=== PATIENT | female | born 1975 | race Caucasian/White ===

== ENCOUNTER → 2016-09-07 | Outpatient (CLI) | payer MEDICAID ==
[2016-09-07 11:24] LABS: Basophils % (A) 0 %; CH 29.8; CHCM 33.4; Eosinophils % (A) 1 %; HCT 41.5 % (34.0-46.0); HGB 13.6 gm/dL (11.4-16.0); Luc # (Auto) 0.07; Luc % (Auto) 1; Lymphocytes % (A) 38 %; MCH 29.3 pg (25.0-35.0); MCHC 32.7 g/dL (31.0-37.0); MCV 89.5 fL (80.0-100.0); Mean Platelet Volume 7.2; Monocytes # (A) 0.2 k/uL (0-1.0); Monocytes % (A) 4 %; Neutrophils % (A) 56 %; RBC 4.64 m/uL (3.80-5.40); RDW 12.9 % (11.5-15.5); WBC 5.3 k/uL (3.8-10.6); WBC (Perox) 5.61
[2016-09-07 11:38] LABS: ALT 39 U/L (9-52); AST 24 U/L (14-36); Alkaline Phosphatase 45 U/L (38-126); Anion Gap 13 mmol/L; Blood Urea Nitrogen 8 mg/dL (7-17); Calcium 9.4 mg/dL (8.4-10.2); Carbon Dioxide 27 mmol/L (22-30); Chloride 104 mmol/L (98-107); Glucose 98 mg/dL (74-99); Non-African American GFR(MDRD) >60 (>60 ml/min/1.73 sqM); Potassium 4.8 mmol/L (3.5-5.1); Sodium 144 mmol/L (137-145); Total Bilirubin 0.5 mg/dL (0.2-1.3); Total Protein 7.3 g/dL (6.3-8.2)
[2016-09-07 12:27] LABS: Vitamin B12 336 pg/mL (239-931)
== END | disposition home or self-care (01) ==
LOC: LABWHC1 10:55
PROVIDERS: ATTEND Family Medicine
DX: E04.1 Nontoxic single thyroid nodule (principal); F41.1 Generalized anxiety disorder; E27.8 Other specified disorders of adrenal gland; R53.83 Other fatigue; R20.2 Paresthesia of skin
CPT/HCPCS: 36415; 80053; 82533; 82607; 84439; 84443; 85025; 86376

== ENCOUNTER → 2016-12-11 | Outpatient (CLI) | payer MEDICAID ==
[2016-12-11 08:58] LABS: CH 30.2; CHCM 33.6; HCT 42.5 % (34.0-46.0); HDW 2.58; HGB 14.4 gm/dL (11.4-16.0); MCH 30.5 pg (25.0-35.0); MCHC 33.8 g/dL (31.0-37.0); MCV 90.2 fL (80.0-100.0); Mean Platelet Volume 7.3; RBC 4.71 m/uL (3.80-5.40); RDW 13.1 % (11.5-15.5); WBC 6.3 k/uL (3.8-10.6)
--- NOTE | 2016-12-11 09:22 | US ---
Thyroid sonography. HISTORY: Nodule. COMPARISON: 2015 ultrasound Thyroid sonography was performed. GLAND SIZE: Right Lobe: 5.0 x 1.3 x 2.4 cm Overall Parenchyma: homogeneous Left Lobe: 4.4 x 1.2 x 1.8 cm Overall Parenchyma: homogeneous Isthmus Thickness: 0.3 cm NODULES RIGHT: # of nodules measured on right: 2 1. 0.6 x 0.3 x 0.6cm hypoechoic nodule at the mid lateral pole with well-defined margin. This nodule is wider than tall and shows no intranodular vascularity. prior size: 0.6 x 0.6 x 0.3 cm 2. 0.8 x 0.5 x 0.7cm hypoechoic solid nodule at the mid posterior pole with well-defined margins. Th is nodule is wider than tall and shows intranodular vascularity. prior size: 0.8 x 0.6 x 0.6 cm 3. Tiny 3mm mixed nodule at the anterior mid pole. No vascularity, wider than tall, not seen previo usly. LEFT: # of nodules measured on left: 1 1. 1.0 x 0.4 x 0.8cm hypoechoic nodule at the mid anterior pole with well-defined. This nodule is wi juan than tall and shows no intranodular vascularity. prior size: 1.0 x 0.9 x 0.4 cm ISTHMUS: # of nodules measured within isthmus: 0 Bilateral neck scanned with no abnormal lymphadenopathy noted; bilateral nodules seen. IMPRESSION: Essentially stable nonspecific thyroid nodularity. Small 3 mm new right-sided nodule as noted above.
[2016-12-11 12:40] LABS: ALT 35 U/L (9-52); AST 21 U/L (14-36); Alkaline Phosphatase 44 U/L (38-126); Anion Gap 10 mmol/L; Blood Urea Nitrogen 14 mg/dL (7-17); Calcium 9.8 mg/dL (8.4-10.2); Carbon Dioxide 27 mmol/L (22-30); Chloride 103 mmol/L (98-107); Cholesterol 208 mg/dL (<200); Glucose 106 mg/dL (74-99); HDL Cholesterol 57 mg/dL (40-60); Non-African American GFR(MDRD) >60 (>60 ml/min/1.73 sqM); Potassium 4.5 mmol/L (3.5-5.1); Sodium 140 mmol/L (137-145); Total Bilirubin 0.6 mg/dL (0.2-1.3); Total Protein 7.7 g/dL (6.3-8.2); Triglycerides 114 mg/dL (<150)
[2016-12-11 13:26] LABS: Vitamin B12 400 pg/mL (239-931)
== END | disposition home or self-care (01) ==
LOC: RADUSWWP 08:10
PROVIDERS: ATTEND Family Medicine
DX: E04.2 Nontoxic multinodular goiter (principal); R20.2 Paresthesia of skin; F41.0 Panic disorder [episodic paroxysmal anxiety]
CPT/HCPCS: 76536; 80053; 80061; 82533; 82607; 84165; 84439; 84443; 85027

== ENCOUNTER → 2017-02-16 | Outpatient (CLI) | payer MEDICAID ==
[2017-02-16 18:40] LABS: Basophils % (A) 1 %; CH 29.5; CHCM 33.6; Eosinophils # (A) 0.1 k/uL (0-0.7); Eosinophils % (A) 1 %; HCT 41.5 % (34.0-46.0); HDW 2.61; HGB 14.4 gm/dL (11.4-16.0); Luc # (Auto) 0.11; Luc % (Auto) 1; Lymphocytes # (A) 3.4 k/uL (1.0-4.8); Lymphocytes % (A) 42 %; MCH 30.6 pg (25.0-35.0); MCHC 34.7 g/dL (31.0-37.0); MCV 88.2 fL (80.0-100.0); Mean Platelet Volume 7.6; Monocytes # (A) 0.5 k/uL (0-1.0); Monocytes % (A) 6 %; Neutrophils # (A) 3.9 k/uL (1.3-7.7); Neutrophils % (A) 48 %; RBC 4.71 m/uL (3.80-5.40); RDW 12.9 % (11.5-15.5); WBC 8.1 k/uL (3.8-10.6); WBC (Perox) 8.16
[2017-02-16 18:56] LABS: Anion Gap 11 mmol/L; Blood Urea Nitrogen 12 mg/dL (7-17); C Reactive Protein 6.8 mg/L (<10.0); Calcium 9.6 mg/dL (8.4-10.2); Carbon Dioxide 26 mmol/L (22-30); Chloride 104 mmol/L (98-107); Glucose 90 mg/dL (74-99); Non-African American GFR(MDRD) >60 (>60 ml/min/1.73 sqM); Potassium 4.5 mmol/L (3.5-5.1); Sodium 141 mmol/L (137-145); Uric Acid 4.5 mg/dL (3.7-7.4)
--- NOTE | 2017-02-16 18:59 | CT ---
EXAMINATION TYPE: CT soft tissue neck w con DATE OF EXAM: 02/16/2017 6:49 PM COMPARISON: NONE HISTORY: Lump to lower neck/clavicle area. Also nodules on lymph nodes. CT DLP: 399.6 mGycm Automated exposure control for dose reduction was used. CONTRAST: CT scan of the neck is performed following with IV Contrast, patient injected with 100 mL of Omnipaqu e 300. Axial images are obtained, coronal and sagittal reformatted images are reviewed. FINDINGS: There is normal branching pattern of the great vessels on the aortic arch. There is arterial flow in the vertebral arteries. There is arterial flow in the common internal and external carotid arteries. There is normal contrast opacification of the jugular veins. There is no evidence of a pharyngeal mass. Epiglottis appears normal. Trachea appears normal. Thyroid gland shows a 8 mm cyst in the left thyroid lobe. There are anterior triangle bilateral cervical lym ph nodes that measure up to 1.2 cm. Parotid glands are symmetric. Submandibular salivary glands are symmetric. There is a BB on the skin surface on the left side of the anterior lower neck. No discrete mass is seen in this area. The lower left sternocleidomastoid muscle is larger than the right. I see no bony destructive process. Tonsils appear normal. IMPRESSION: There is slight asymmetry of the lower sternocleidomastoid mastoid muscle that could acc ount for palpable asymmetry. No discrete neck mass. Small left thyroid cyst. Nonspecific anterior tri angle cervical lymph nodes measure up to 12 mm.
[2017-02-16 19:40] LABS: Vitamin B12 701 pg/mL (239-931)
[2017-02-16 22:31] LABS: Erythrocyte Sedimentation Rate 8 mm/hr (0-20)
[2017-02-17 01:20] LABS: ANA w/Reflex to Titer NEGATIVE (NEGATIVE); Cyclic Citrull Pep IgG Unit <0.5 U/mL; Cyclic Citrullinated Pep IgG NEGATIVE (NEGATIVE)
[2017-02-19 14:39] LABS: Mis test requested (Blood) Free T4
== END | disposition home or self-care (01) ==
LOC: RADCTMAIN 18:07
PROVIDERS: ATTEND Family Medicine
DX: E04.1 Nontoxic single thyroid nodule (principal); R22.1 Localized swelling, mass and lump, neck; E04.2 Nontoxic multinodular goiter; E55.9 Vitamin D deficiency, unspecified; E53.8 Deficiency of other specified B group vitamins
CPT/HCPCS: 80048; 85652; 82607; 84436; 84443; 84550; 85025; 86140; 86618; 82306; 86038; 86200; 70491; Q9967; 84439

== ENCOUNTER → 2017-03-01 | Outpatient (CLI) | payer MEDICAID ==
--- NOTE | 2017-03-01 18:34 | XR ---
EXAMINATION TYPE: XR clavicle LT DATE OF EXAM: 03/01/2017 COMPARISON: NONE HISTORY: Lump on the collarbone TECHNIQUE: 2 views FINDINGS: I see no fracture nor dislocation. Joint spaces are normal. There is no sign of a mass. IMPRESSION: Negative left clavicle exam.
== END | disposition home or self-care (01) ==
LOC: RADXRMAIN 17:30
PROVIDERS: ATTEND Family Medicine
DX: R22.1 Localized swelling, mass and lump, neck (principal)